=== PATIENT | female | born 1935 | race Caucasian/White ===

== ENCOUNTER 2025-03-26 13:23 | Inpatient (IN) | payer OTHER ==
[~2025-03-26 13:23] MED LIST: AMLODIPINE BESY10 MG PO; ASPIRIN CHEWABL81 MG PO; ESCITALOPRAM OX10 MG PO; ESOMEPRAZOLE MA40 M1 PO; HYDROCODONE-AC1 EAC1 PO; LEVOTHYROXINE125 MCG PO; LOSARTAN POTAS100 M1 PO; PAIN RELIEVER650 MG PO; Rocaltrol0.25 MCG PO; ZETIA10 MG PO
[2025-03-26] MEDS ORDERED: ATROPINE SULFATE 1% 2 ML BOTTLE SL PRN (13:50)
[2025-03-26] MEDS ORDERED: diazePAM 10 MG/2 ML SYR IV PRN (13:50)
[2025-03-26] MEDS ORDERED: SODIUM CHLORIDE 0.9% 500 ML IV ONE (15:06)
[2025-03-26 16:00] VITALS: BP 111/60
[2025-03-26 20:00] VITALS: BP 116/80
[2025-03-27] VITALS: BP 98/46
[2025-03-27 08:00] VITALS: BP 129/57
[2025-03-27] MEDS ORDERED: SODIUM CHLORIDE 0.9% 500 ML IV ONE (08:04)
[2025-03-27 12:00] VITALS: BP 118/75
[2025-03-27 20:00] VITALS: BP 136/60; BP 176/79
[2025-03-28] VITALS: BP 100/49
[2025-03-28] MEDS ORDERED: SODIUM CHLORIDE 0.9% 500 ML IV ONE ×2 (01:39→17:02)
[2025-03-28 08:00] VITALS: BP 100/86
[2025-03-28 11:46] VITALS: BP 112/39
[2025-03-28 21:13] VITALS: BP 88/48
[2025-03-29] MEDS ORDERED: SODIUM CHLORIDE 0.9% 500 ML IV ONE (09:48)
[2025-03-30] MEDS ORDERED: SODIUM CHLORIDE 0.9% 500 ML IV SCH (01:40)
[2025-03-30] MEDS ORDERED: SODIUM CHLORIDE 0.9% 500 ML IV ONE ×2 (02:01→22:26)
[2025-03-31 08:00] VITALS: BP 85/33
== END 2025-03-31 12:20 | DRG 871 ==
LOC: 5E 13:23
PROVIDERS: ADMIT Internal Medicine; ATTEND Internal Medicine
DX: A41.9 Sepsis, unspecified organism (principal); E43 Unspecified severe protein-calorie malnutrition; G93.41 Metabolic encephalopathy; J69.0 Pneumonitis due to inhalation of food and vomit; J96.01 Acute respiratory failure with hypoxia; N17.0 Acute kidney failure with tubular necrosis; E87.20 Acidosis, unspecified; K50.919 Crohn's disease, unspecified, with unspecified complications; S72.401A Unspecified fracture of lower end of right femur, initial encounter for closed fracture; E89.0 Postprocedural hypothyroidism; R65.20 Severe sepsis without septic shock; M81.0 Age-related osteoporosis without current pathological fracture; E83.51 Hypocalcemia; E11.65 Type 2 diabetes mellitus with hyperglycemia; Z51.5 Encounter for palliative care; Z68.23 Body mass index [BMI] 23.0-23.9, adult; Z90.49 Acquired absence of other specified parts of digestive tract; Z87.891 Personal history of nicotine dependence; X58.XXXA Exposure to other specified factors, initial encounter; Y93.89 Activity, other specified; Y92.89 Other specified places as the place of occurrence of the external cause; Y99.8 Other external cause status